=== PATIENT | female | born 1995 | race Caucasian/White ===

== ENCOUNTER 2025-05-29 08:38 | Outpatient (AMB) | payer BC, SELFPAY ==
[2025-05-29 09:03] VITALS: BP 112/78; PULSE 82; RESP 17; TEMP 36.8; O2SAT 98; BMI 31.2
--- NOTE | 2025-05-29 09:03 | OBCLNT_ITS ---
Vital Signs 05/29/25 09:03 Height 1.55 m Height Method Stated Weight 74.956 kg Weight Measurement Method Standing Scale BMI 31.2 BP 112/78 Blood Pressure Source Automatic Cuff Blood Pressure Location Right Upper Arm Position Sitting Respiration 17 Pulse 82 Pulse Source Monitor Temp 98.2 F Temp Source Temporal Artery Scan Pulse Oximetry (%) 98 Oxygen Delivery Method Room Air Allergies/Home Meds Allergies & Medications Allergies No Known Allergies Allergy (Verified 05/29/25 09:04) Medication Reconciliation Unobtainable 05/29/25 [History Confirmed 05/29/25] Intake Visit Data Collection New Patient or Established: New Patient (never been to [facility]) Reason for Visit:: OBI Seen by Clinical Staff ONLY (RN/MA): No Brick Paver Required: No Do You Feel Safe at Home: Yes Authorities Contacted: N/A PCP or OBGYN visit in last 3 months: No Hx Now: Yes Are you currently on any form of Control: No Last menstrual period: 03/28/25 Pain Present Currently: No Pain Scale Used: Morris-Anne/Numerical Pain scale:: 0 Smoking Status Smoking Status: Never smoker Questionnaires Covid-19 Vaccine Questionnaire Has patient been vacinated for Covid-19 Have you been vacinated for Covid-19: No PHQ-9 PHQ-2 Over the last 2 weeks, how often have you been bothered by any of the following problems? 1. Little interest or pleasure in doing things: not at all 2. Feeling down, depressed, or hopeless: not at all Total score: 0 PHQ-9 3. Trouble falling or staying asleep, or sleeping too much: Not at all 4. Feeling tired or having little energy: Not at all 5. Poor appetite or overeating: Not at all 6. Feeling bad about yourself - or that you are a failure or have let yourself or your family down: Not at all 7. Trouble concentrating on things, such as reading the newspaper or watching television: Not at all 8. Moving or speaking so slowly that other people could have noticed? - Or the opposite - being so fidgety or restless that you have been moving around a lot more than usual: not at all 9. Thoughts that you would be better off or of hurting yourself in some way: Not at all Total score: 0 If you checked off any problems, how difficult have these problems made it for you to do your work, take care of things at home, or get along with other people?: not difficult at all Source: Developed by Drs. Travis Almeida, Analy Ingram, Delmar Perez and colleagues, with an educational tiarra from [employer]. Depression screen completed yes Social History Living Situation History Marital Status: Lives With: Family Housing: House Tobacco History Smoking Status: Never smoker Second Hand Smoke Exposure: No Alcohol History Alcohol Intake: Never Domestic Abuse History Do You Feel Safe at Home: Yes History of Present Illness HPI Narrative 30-year-old 3 para 2 for OBI. Patient is happy about the . Her last. Was March 28, 2025. Estimated due date is January 03, 2026. Patient has a history of a previous x 2. She denies any SAB concerns. Denies social habits. Previous section x 2 and she had an appendectomy in 2021. Patient has no existing past medical history. Complains of fatigue but no nausea and vomiting OB Initial Visit OB Flowsheet OB Flowsheet Initial Weight: Not Recorded Date -?-?-?-?-?-?-?-?-?-?-?-?- EGA Weight BP Alb Glu CTX Pres Fundal ht FHR Mov Dilation Station Effacement Hx Notes Visit Note 05/29/25 -?-?-?-?-?-?-?-?-?-?-?-?- 8w 6d 74.956 kg 112/78 absent unknown 9 144 absent 30-year-old 2 para 2 for OBI. Patient has a history of previous C-sections x 2. Her last. March 28, 2025. And this gives EDC 01/01/2026. Her Pap was this year negative. She is taking vitamins. Denies any signs or symptoms of miscarriage OB panel today with hemoglobin A1c, NIPT and carrier screens. Discussed SAB precautions. I scheduled an [facility] for [facility] For dating. And she will return in 4 weeks with OB Menstrual History Menstrual reliability: definite Flow: normal Menstrual regularity: regular Monthly: Yes On control pills at conception: No OB History : 3 Para: 2 # of Living Children: 2 Delivery History 1st : Child's name: CASSY TRIVEDI date: 01/27/14 sex: male Gestational age at delivery (weeks): 39 Delivery type: weight (lbs): 2721.554 g weight (oz): 368.544 g Delivery complications: EMERGENCY CSECTION History of depression before or after : No 2nd : Child's name: SHYAM RIBEIRO date: 03/10/17 sex: female Gestational age at delivery (weeks): 39 Delivery type: weight (lbs): 3175.147 g weight (oz): 56.699 g History of depression before or after : No Infection History & Risk Evaluation History of STDs: none HIV risk evaluation: low risk Hepatitis B risk evaluation: low risk Patient or partner has history of Genital Herpes: No Varicella/chicken pox status: unknown Genetic Screening & History Genetic Screening/Teratology Counseling - Includes patient, baby's father, or anyone in either family with: 1. Patient's age 35 years or older as of estimated date of delivery: No 2. Thalassemia (Sami, Maltese, Mediterranean, or Background); MCV less than 80: No 3. Neural Tube Defect (Meningomyelocele, Spina Bifida, or Anencephaly): No 4. Congenital Heart Defect: No 5. Down Syndrome: No 6. Jose-Sachs (Ashkenazi Quaker, Cajun, Turkish Sao Tomean): No 7. Patel Disease (Ashkenazi Quaker): No 8. Familial Dysautonomia (Ashkenazi Quaker): No 9. Sickle Cell Disease or Trait (): No 10. Hemophilia or other blood disorders: No 11. Muscular Dystrophy: No 12. Cystic Fibrosis: No 13. Harford's Chorea: No 14. Mental Retardation/Autism: No 15. Other inherited genetic or chromosomal disorder: No 16. Maternal Metabolic Disorder (EG,TYPE 1 Diabetes, PKU): No 17. Patient or baby's father had a child with defects not listed above: No 18. Recurrent loss or a stillbirth: No 19. Medications (including supplements, vitamins, herbs or otc drugs)/illicit/recreational drugs/alcohol since last menstrual period: No 20. Any other: No Infection History 1. Live with someone with TB or exposed to TB: No 2. Rash or viral illness since last menstrual period: No 3. Hepatitis B,C: No Other (see comments) Source: [employer] Review of Systems Review of Systems Systems Reviewed: All systems reviewed, normal except as documented Exam General Limitations: no limitations General Appearance: alert, in no apparent distress, comfortable, cooperative, healthy appearing, well developed and well groomed Head Head exam: atraumatic, normocephalic and normal inspection Neck Neck exam: Present normal inspection, full ROM and trachea midline Resp Respiratory exam: Present normal lung sounds bilaterally Card Cardiovascular exam: Present regular rate, normal rhythm and normal heart sounds Abdominal Abdominal exam: Present soft and normal bowel sounds Extremities Extremities exam: Present normal inspection and full ROM Psych Psychiatric exam: Present normal affect and normal mood Office Procedures OB Clinic LOC & Office Proc's Nursing/Assessment Patient Status: Initial/New Patient OB Clinic Nursing Assessment: Medication Reconciliation, Update PMH in EMR and Vital Signs OB Clinic Coordination of Care: Complex Care and Chronic Disease 1-5, Consent,records obtained, informed consent, Education Simp Pt/Fam, Lab and Imaging orders and Staff clarify orders Special Needs: Heart tones New Patient Charge New Patient Point Assignment: [id number] 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 Schedule OB sono here at [facility] for dates. Discussed SAB precautions. Return in 4 weeks for OB check Additional Plan Follow Up: 4 Weeks (obc)
== END 2025-05-29 09:29 | disposition home or self-care (01) ==
LOC: HODSOBC 08:38
PROVIDERS: Supervising Provider Advanced Practice Midwife; Visit Provider Advanced Practice Midwife
DX: O09.291 Supervision of pregnancy with other poor reproductive or obstetric history, first trimester (principal); O34.211 Maternal care for low transverse scar from previous cesarean delivery; Z3A.08 8 weeks gestation of pregnancy
CPT/HCPCS: 99204; G0463

== ENCOUNTER → 2025-06-23 | Outpatient (CLI) | payer BC, SELFPAY ==
--- NOTE | 2025-06-23 15:30 | XR_ITS ---
Examination: Complete OB ultrasound, less than 14 weeks, transabdominal Date and time of exam: June 23, 2025, 1519 hours INDICATIONS: Encounter for maternal care, history , encounter for supervision of high risk Technique: Obstetrical ultrasound images less than 14 weeks performed via transabdominal imaging Findings: A normal shaped single intrauterine gestation is present in the uterus. CRL 6.1 cm corresponds to 12 weeks 4 days gestational age Cardiac motion 160 BPM Ultrasonographic survey of visible and placental structures unremarkable. Amniotic fluid volume appears appropriate for this estimated gestational age. Right ovary 2.8 cm arterial flow Left ovary 1.9 cm arterial flow IMPRESSION: Viable intrauterine gestation 12 weeks 4 days.
== END | disposition home or self-care (01) ==
PROVIDERS: Referring Provider Advanced Practice Midwife; Visit Provider Advanced Practice Midwife
DX: O34.211 Maternal care for low transverse scar from previous cesarean delivery (principal); O09.91 Supervision of high risk pregnancy, unspecified, first trimester; Z3A.12 12 weeks gestation of pregnancy
CPT/HCPCS: 76801

== ENCOUNTER 2025-06-25 13:58 | Outpatient (AMB) | payer BC, SELFPAY ==
--- NOTE | 2025-06-25 14:06 | OBCLNT_ITS ---
Vital Signs 06/25/25 14:09 Height 1.55 m Height Method Stated Weight 74.389 kg Weight Measurement Method Standing Scale BMI 30.9 BP 115/80 Blood Pressure Source Automatic Cuff Blood Pressure Location Left Upper Arm Position Sitting Respiration 20 Pulse 107 H Pulse Source Monitor Temp 97.7 F Temp Source Oral Pulse Oximetry (%) 97 Oxygen Delivery Method Room Air Allergies/Home Meds Allergies & Medications Allergies No Known Allergies Allergy (Verified 06/25/25 14:10) Medication Reconciliation nitrofurantoin monohydrate/macrocrystals 100 mg capsule (Macrobid) 100 mg PO BID 7 days #14 caps 06/25/25 [Rx] Intake Visit Data Collection New Patient or Established: Established Patient (seen at [facility] within 3 years) Reason for Visit:: CARE Seen by Clinical Staff ONLY (RN/MA): No Fur Sorter Required: No Do You Feel Safe at Home: Yes Authorities Contacted: N/A PCP or OBGYN visit in last 3 months: Yes Hx Now: Yes Are you currently on any form of Control: No Pain Present Currently: No Pain Scale Used: Morris-Anne/Numerical Pain scale:: 0 Smoking Status Smoking Status: Never smoker Questionnaires Covid-19 Vaccine Questionnaire Has patient been vacinated for Covid-19 Have you been vacinated for Covid-19: No PHQ-9 PHQ-2 Over the last 2 weeks, how often have you been bothered by any of the following problems? 1. Little interest or pleasure in doing things: not at all 2. Feeling down, depressed, or hopeless: not at all Total score: 0 PHQ-9 3. Trouble falling or staying asleep, or sleeping too much: Not at all 4. Feeling tired or having little energy: Not at all 5. Poor appetite or overeating: Not at all 6. Feeling bad about yourself - or that you are a failure or have let yourself or your family down: Not at all 7. Trouble concentrating on things, such as reading the newspaper or watching television: Not at all 8. Moving or speaking so slowly that other people could have noticed? - Or the opposite - being so fidgety or restless that you have been moving around a lot more than usual: not at all 9. Thoughts that you would be better off or of hurting yourself in some way: Not at all Total score: 0 Source: Developed by Drs. Travis Almeida, Analy Ingram, Delmar Perez and colleagues, with an educational tiarra from [employer]. Depression screen completed yes Social History Living Situation History Lives With: Family Housing: House Tobacco History Smoking Status: Never smoker Second Hand Smoke Exposure: No Alcohol History Alcohol Intake: Never Domestic Abuse History Do You Feel Safe at Home: Yes Care OB Visit Log OB Flowsheet Initial Weight: Not Recorded Date -?-?-?-?-?-?-?-?-?-?-?-?- EGA Weight BP Alb Glu CTX Pres Fundal ht FHR Mov Dilation Station Effacement Hx Notes Visit Note 05/29/25 -?-?-?-?-?-?-?-?-?-?-?-?- 8w 6d 74.956 kg 112/78 absent unknown 9 144 absent 30-year-old 2 para 2 for OBI. Patient has a history of previous C-sections x 2. Her last. March 28, 2025. And this gives EDC 01/01/2026. Her Pap was this year negative. She is taking vitamins. Denies any signs or symptoms of miscarriage OB panel today with hemoglobin A1c, NIPT and carrier screens. Discussed SAB precautions. I scheduled an [facility] for [facility] here [facility]. For dating. And she will return in 4 weeks with OB 06/25/25 -?-?-?-?-?-?-?-?-?-?-?-?- 12w 5d 74.389 kg 115/80 absent unknown 12 144 absent Doing well. Denies cramps, bleeding, leaking. No dysuria. ma yeah so then He called me and said so my plan is to t ry to get thiscrobid 100 bid x 7, fluid, discuss dates. mfm pending. RTC 4 wk AFP. review sab precauton MYNOR Calculator Estimated Delivery Date Method Current WG Current Estimate 01/02/26 LMP (Certain) 12w 5d Other Estimates 01/01/26 Ultrasound #1 12w 6d Notes Visit Date: 06/25/25 Last Updated by: Maggy Ferguson CNM 06/13: A+,abs-. RPR::NR, rub IMM, hbsag-,hiv-,GC/CT-, UA:+ ecoli, /266, A!; 4.8 Visit Date: 05/29/25 Last Updated by: Maggy Ferguson CNM 30 yo . prev C/S x2. LMP 03/28/25. EDC: 01/01/26 Office Procedures OBC Clinic LOC & Office Proc's Nursing/Assessment Patient Status: Established Patient OB Clinic Nursing Assessment: Medication Reconciliation, Update PMH in EMR and Vital Signs OB Clinic Coordination of Care: Complex Care and Chronic Disease 1-5, Consent,records obtained, informed consent, Education Simp Pt/Fam, Lab and Imaging orders, Results/Orders obtained and Staff clarify orders Special Needs: Heart tones Established Patient Charge Established Patient Point Assignment: 135 Established Patient Point Charge: EP Level 4 (120-155) Assessment & Plan Diagnosis / Problem List (1) Encounter for supervision of high risk in first trimester, antepartum: Status: Acute (2) UTI (urinary tract infection): Status: Acute Plan Discussed lab results. Macrobid 100 twice daily x 7. Increase fluids. Discussed SAB precautions. Maternal- medicine sono is pending. Return in 4 weeks OB check and AFP Additional Plan Follow Up: 4 Weeks (obc/AFP)
[2025-06-25 14:09] VITALS: BP 115/80; PULSE 107; RESP 20; TEMP 36.5; O2SAT 97; BMI 30.9
== END 2025-06-25 14:27 | disposition home or self-care (01) ==
LOC: HODSOBC 13:58
PROVIDERS: Supervising Provider Advanced Practice Midwife; Visit Provider Advanced Practice Midwife
DX: O09.891 Supervision of other high risk pregnancies, first trimester (principal); O23.41 Unspecified infection of urinary tract in pregnancy, first trimester; N39.0 Urinary tract infection, site not specified; Z3A.12 12 weeks gestation of pregnancy
CPT/HCPCS: 99214; G0463

== ENCOUNTER 2025-07-23 14:21 | Outpatient (AMB) | payer BC, SELFPAY ==
[2025-07-23 14:31] VITALS: BP 106/72; PULSE 89; RESP 16; TEMP 36.6; O2SAT 99; BMI 31.6
--- NOTE | 2025-07-23 14:31 | AMB.OBVISIT ---
Vital Signs 07/23/25 14:31 Height 1.55 m Height Method Stated Weight 75.977 kg Weight Measurement Method Standing Scale BMI 31.6 BP 106/72 Blood Pressure Source Automatic Cuff Blood Pressure Location Left Upper Arm Position Sitting Respiration 16 Pulse 89 Pulse Source Monitor Temp 97.8 F Temp Source Oral Pulse Oximetry (%) 99 Oxygen Delivery Method Room Air Allergies/Home Meds Allergies & Medications Allergies No Known Allergies Allergy (Verified 07/23/25 14:32) Medication Reconciliation No Known Home Medications 07/23/25 [History Confirmed 07/23/25] Intake Visit Data Collection New Patient or Established: Established Patient (seen at [facility] within 3 years) Reason for Visit:: CARE Seen by Clinical Staff ONLY (RN/MA): No Orange Picker Machine Operator Required: No Do You Feel Safe at Home: Yes Authorities Contacted: N/A PCP or OBGYN visit in last 3 months: Yes Hx Now: Yes Are you currently on any form of Control: No Pain Present Currently: No Pain Scale Used: Morris-Anne/Numerical Pain scale:: 0 Smoking Status Smoking Status: Never smoker Immunizations Flu Vaccine in the Last 12 Months: No Flu Vaccine Exclusion Criteria: Refused by Patient Questionnaires Covid-19 Vaccine Questionnaire Has patient been vacinated for Covid-19 Have you been vacinated for Covid-19: No PHQ-9 PHQ-2 Over the last 2 weeks, how often have you been bothered by any of the following problems? 1. Little interest or pleasure in doing things: not at all 2. Feeling down, depressed, or hopeless: not at all Total score: 0 PHQ-9 3. Trouble falling or staying asleep, or sleeping too much: Not at all 4. Feeling tired or having little energy: Not at all 5. Poor appetite or overeating: Not at all 6. Feeling bad about yourself - or that you are a failure or have let yourself or your family down: Not at all 7. Trouble concentrating on things, such as reading the newspaper or watching television: Not at all 8. Moving or speaking so slowly that other people could have noticed? - Or the opposite - being so fidgety or restless that you have been moving around a lot more than usual: not at all 9. Thoughts that you would be better off or of hurting yourself in some way: Not at all Total score: 0 Source: Developed by Drs. Travis Almeida, Analy Ingram, Delmar Perez and colleagues, with an educational tiarra from [employer]. Depression screen completed yes Social History Living Situation History Lives With: Family Housing: House Tobacco History Smoking Status: Never smoker Second Hand Smoke Exposure: No Alcohol History Alcohol Intake: Never Domestic Abuse History Do You Feel Safe at Home: Yes Care OB Visit Log OB Flowsheet Initial Weight: Not Recorded Date <del>?</del> EGA Weight BP Alb Glu CTX Pres Fundal ht FHR Mov Dilation Station Effacement Hx Notes Visit Note 05/29/25 <del>?</del> 8w 6d 74.956 kg 112/78 absent unknown 9 144 absent 30-year-old 2 para 2 for OBI. Patient has a history of previous C-sections x 2. Her last. March 28, 2025. And this gives EDC 01/01/2026. Her Pap was this year negative. She is taking vitamins. Denies any signs or symptoms of miscarriage OB panel today with hemoglobin A1c, NIPT and carrier screens. Discussed SAB precautions. I scheduled an [facility] for [facility] For dating. And she will return in 4 weeks with OB 06/25/25 <del>?</del> 12w 5d 74.389 kg 115/80 absent unknown 12 144 absent Doing well. Denies cramps, bleeding, leaking. No dysuria. ma yeah so then He called me and said so my plan is to try to get thiscrobid 100 bid x 7, fluid, discuss dates. mfm pending. RTC 4 wk AFP. review sab precauton 07/23/25 <del>?</del> 16w 5d 75.977 kg 106/72 absent unknown 16 135 active Doing well. No bleeding, no leaking, no contractions. Light movement.. aFP today. Patient has anatomy scan scheduled with MFM. Discussed SAB precautions. Return in 4 weeks with OB PE MYNOR Calculator Estimated Delivery Date Method Current WG Current Estimate 01/02/26 LMP (Certain) 16w 5d Other Estimates 01/01/26 Ultrasound #1 16w 6d Notes Visit Date: 06/25/25 Last Updated by: Maggy Ferguson CNM 06/13: A+,abs-. RPR::NR, rub IMM, hbsag-,hiv-,GC/CT-, UA:+ ecoli, /266, A!; 4.8 Visit Date: 05/29/25 Last Updated by: Maggy Ferguson CNM 30 yo . prev C/S x2. LMP 03/28/25. EDC: 01/01/26 Office Procedures OBC Clinic LOC & Office Proc's Nursing/Assessment Patient Status: Established Patient OB Clinic Nursing Assessment: Medication Reconciliation, Update PMH in EMR and Vital Signs OB Clinic Coordination of Care: Complex Care and Chronic Disease 1-5, Consent,records obtained, informed consent, Education Simp Pt/Fam, Lab and Imaging orders, Results/Orders obtained and Staff clarify orders Special Needs: Heart tones Established Patient Charge Established Patient Point Assignment: 135 Established Patient Point Charge: EP Level 4 (120-155) Assessment & Plan Diagnosis / Problem List (1) Encounter for supervision of high risk in second trimester, antepartum: Status: Acute (2) Encounter for maternal care for low transverse scar from previous delivery: Status: Acute Plan aFP today. Schedule with OB next visit. Discussed SAB precautions. Continue prenatals. Return 4 weeks OB check Additional Plan Follow Up: 4 Weeks (obc)
== END 2025-07-23 15:11 | disposition home or self-care (01) ==
LOC: HODSOBC 14:21
PROVIDERS: Supervising Provider Advanced Practice Midwife; Visit Provider Advanced Practice Midwife
DX: O09.292 Supervision of pregnancy with other poor reproductive or obstetric history, second trimester (principal); O34.211 Maternal care for low transverse scar from previous cesarean delivery; Z3A.16 16 weeks gestation of pregnancy
CPT/HCPCS: 99214; G0463

== ENCOUNTER 2025-08-26 14:08 | Outpatient (AMB) | payer BC, SELFPAY ==
[2025-08-26 14:44] VITALS: BP 108/70; PULSE 68; RESP 14; TEMP 36.5; O2SAT 98; BMI 31.9
--- NOTE | 2025-08-26 14:44 | OBCLNT_ITS ---
Vital Signs 08/26/25 14:44 Height 1.55 m Height Method Stated Weight 76.827 kg Weight Measurement Method Standing Scale BMI 31.9 BP 108/70 Blood Pressure Source Automatic Cuff Blood Pressure Location Left Upper Arm Position Sitting Respiration 14 Pulse 68 Pulse Source Monitor Temp 97.7 F Temp Source Oral Pulse Oximetry (%) 98 Oxygen Delivery Method Room Air Allergies/Home Meds Allergies & Medications Allergies No Known Allergies Allergy (Verified 08/26/25 14:45) Medication Reconciliation No Known Home Medications 07/23/25 [History Confirmed 08/26/25] Immunizations Immunizations Flu Vaccine in the Last 12 Months: No Flu Vaccine Exclusion Criteria: Refused by Patient Care OB Visit Log OB Flowsheet Initial Weight: Not Recorded Date -?-?-?-?-?-?-?-?-?-?-?-?- EGA Weight BP Alb Glu CTX Pres Fundal ht FHR Mov Dilation Station Effacement Hx Notes Visit Note 05/29/25 -?-?-?-?-?-?-?-?-?-?-?-?- 8w 6d 74.956 kg 112/78 absent unknown 9 144 absent 30-year-old 2 para 2 for OBI. Patient has a history of previous C-sections x 2. Her last. March 28, 2025. And this gives EDC 01/01/2026. Her Pap was this year negative. She is taking vitamins. Denies any signs or symptoms of miscarriage OB panel today with hemoglobin A1c, NIPT and carrier screens. Discussed SAB precautions. I scheduled an [facility] for [facility]. For dating. And she will return in 4 weeks with OB 06/25/25 -?-?-?-?-?-?-?-?-?-?-?-?- 12w 5d 74.389 kg 115/80 absent unknown 12 144 absent Doing well. Denies cramps, bleeding, leaking. No dysuria. miladys yeah so then He called me and said so my plan is to t ry to get thiscrobid 100 bid x 7, fluid, discuss dates. mfm pending. RTC 4 wk AFP. review sab precauton 07/23/25 -?-?-?-?-?-?-?-?-?-?-?-?- 16w 5d 75.977 kg 106/72 absent unknown 16 135 active Doing well. No bleeding, no leaking, no contractions. Light movement.. aFP today. Patient has anatomy scan scheduled with MFM. Discussed SAB precautions. Return in 4 weeks with OB PE 08/26/25 -?-?-?-?-?-?-?-?-?-?-?-?- 21w 4d 76.827 kg 108/70 absent unknown 21 150 active MNYOR Calculator Estimated Delivery Date Method Current WG Current Estimate 01/02/26 LMP (Certain) 21w 4d Other Estimates 01/01/26 Ultrasound #1 21w 5d Notes Visit Date: 08/26/25 Last Updated by: Halley Huang MD / previous c section at 21.4 weeks / Has an anatomy scan scheduled for 09/05/2025 appropriate growth / follow up in 4 weeks Visit Date: 06/25/25 Last Updated by: Maggy Ferguson CNM 06/13: A+,abs-. RPR::NR, rub IMM, hbsag-,hiv-,GC/CT-, UA:+ ecoli, /266, A!; 4.8 Visit Date: 05/29/25 Last Updated by: Maggy Ferguson CNM 30 yo . prev C/S x2. LMP 03/28/25. EDC: 01/01/26 Office Procedures OBC Clinic LOC & Office Proc's Nursing/Assessment Patient Status: Established Patient OB Clinic Nursing Assessment: Medication Reconciliation, Update PMH in EMR and Vital Signs OB Clinic Coordination of Care: Complex Care and Chronic Disease 1-5, Consent,records obtained, informed consent, Education Simp Pt/Fam, 1 Ins Authorization, Lab and Imaging orders, Results/Orders obtained and Staff clarify orders Special Needs: Heart tones Established Patient Charge Established Patient Point Assignment: 150 Established Patient Point Charge: EP Level 4 (120-155) Assessment & Plan Diagnosis / Problem List (1) Encounter for supervision of high risk in second trimester, antepartum: Status: Acute (2) Encounter for maternal care for low transverse scar from previous delivery: Status: Acute Additional Plan carrier screening is negative / at 21.4 weeks / previous LTCS/ anatomy scan scheduled for 09/05/2025 follow up in 4 weeks / refused all vaccines / taking pills
== END 2025-08-26 15:12 | disposition home or self-care (01) ==
PROVIDERS: Supervising Provider Obstetrics & Gynecology; Visit Provider Obstetrics & Gynecology
DX: O09.292 Supervision of pregnancy with other poor reproductive or obstetric history, second trimester (principal); O34.211 Maternal care for low transverse scar from previous cesarean delivery; Z3A.21 21 weeks gestation of pregnancy; Z28.21 Immunization not carried out because of patient refusal
CPT/HCPCS: 99214; G0463

== ENCOUNTER 2025-09-23 13:08 | Outpatient (AMB) | payer BC, SELFPAY ==
[2025-09-23 13:16] VITALS: BP 109/73; PULSE 74; RESP 18; TEMP 36.2; O2SAT 98; BMI 32.6
--- NOTE | 2025-09-23 13:16 | OBCLNT_ITS ---
Vital Signs 09/23/25 13:16 Height 1.55 m Height Method Stated Weight 78.471 kg Weight Measurement Method Standing Scale BMI 32.6 BP 109/73 Blood Pressure Source Automatic Cuff Blood Pressure Location Left Upper Arm Position Sitting Respiration 18 Pulse 74 Pulse Source Monitor Temp 97.2 F Temp Source Oral Pulse Oximetry (%) 98 Oxygen Delivery Method Room Air Allergies/Home Meds Allergies & Medications Allergies No Known Allergies Allergy (Verified 09/23/25 13:17) Medication Reconciliation No Known Home Medications 07/23/25 [History Confirmed 09/23/25] Immunizations Immunizations Flu Vaccine in the Last 12 Months: No Flu Vaccine Exclusion Criteria: No Exclusion Criteria Care OB Visit Log OB Flowsheet Initial Weight: Not Recorded Date -?-?-?-?-?-?-?-?-?-?-?-?- EGA Weight BP Alb Glu CTX Pres Fundal ht FHR Mov Dilation Station Effacement Hx Notes Visit Note 05/29/25 -?-?-?-?-?-?-?-?-?-?-?-?- 8w 6d 74.956 kg 112/78 absent unknown 9 144 absent 30-year-old 2 para 2 for OBI. Patient has a history of previous C-sections x 2. Her last. March 28, 2025. And this gives EDC 01/01/2026. Her Pap was this year negative. She is taking vitamins. Denies any signs or symptoms of miscarriage OB panel today with hemoglobin A1c, NIPT and carrier screens. Discussed SAB precautions. I scheduled an ultrasound for her here at [facility]. For dating. And she will return in 4 weeks with OB 06/25/25 -?-?-?-?-?-?-?-?-?-?-?-?- 12w 5d 74.389 kg 115/80 absent unknown 12 144 absent Doing well. Denies cramps, bleeding, leaking. No dysuria. miladys yeah so then He called me and said so my plan is to t ry to get thiscrobid 100 bid x 7, fluid, discuss dates. mfm pending. RTC 4 wk AFP. review sab precauton 07/23/25 -?-?-?-?-?-?-?-?-?-?-?-?- 16w 5d 75.977 kg 106/72 absent unknown 16 135 active Doing well. No bleeding, no leaking, no contractions. Light movement.. aFP today. Patient has anatomy scan scheduled with [facility]. Discussed SAB precautions. Return in 4 weeks with OB PE 08/26/25 -?-?-?-?-?-?-?-?-?-?-?-?- 21w 4d 76.827 kg 108/70 absent unknown 21 150 active 09/23/25 -?-?-?-?-?-?-?-?-?-?-?-?- 25w 4d 78.471 kg 109/73 Visit Date: 06/25/25 Last Updated by: Maggy Ferguson CNM 06/13: A+,abs-. RPR::NR, rub IMM, hbsag-, hiv-,GC/CT-, UA:+ ecoli, , A!; 4.8 Visit Date: 05/29/25 Last Updated by: Maggy Ferguson CNM 30 yo . prev C/S x2. LMP 03/28/25. EDC: 01/01/26 MYNOR Calculator Estimated Delivery Date Method Current WG Current Estimate 01/02/26 LMP (Certain) 25w 4d Other Estimates 01/01/26 Ultrasound #1 25w 5d Notes Visit Date: 09/23/25 Last Updated by: Halley Huang MD [facility] Us and scan appropriate growth / best EDC by LMP / 01/02/2026/ Plan repeat LTCS at 39 weeks / follow up in 3 weeks Visit Date: 08/26/25 Last Updated by: Halley Huang MD / previous c section at 21.4 weeks / Has an anatomy scan scheduled for 09/05/2025 appropriate growth / follow up in 4 weeks Visit Date: 06/25/25 Last Updated by: Maggy Ferguson CNM 06/13: A+,abs-. RPR::NR, rub IMM, hbsag-,hiv-,GC/CT-, UA:+ ecoli, , A!; 4.8 Visit Date: 05/29/25 Last Updated by: Maggy Ferguson CNM 30 yo . prev C/S x2. LMP 03/28/25. EDC: 01/01/26 Office Procedures [facility] LOC & Office Proc's Nursing/Assessment Patient Status: Established Patient OB Clinic Nursing Assessment: Medication Reconciliation, Update PMH in EMR and Vital Signs OB Clinic Coordination of Care: Complex Care and Chronic Disease 1-5, Consent,records obtained, informed consent, Education Simp Pt/Fam, Lab and Imaging orders, Results/Orders obtained and Staff clarify orders Special Needs: Heart tones Established Patient Charge Established Patient Point Assignment: 135 Established Patient Point Charge: EP Level 4 (120-155) Assessment & Plan Diagnosis / Problem List (1) Encounter for supervision of high risk in second trimester, antepartum: Status: Acute (2) Encounter for maternal care for low transverse scar from previous delivery: Status: Acute Additional Assessment appropriate growth / one hour GTT / CBC and RPR ordered and follow up in 3 weeks
== END 2025-09-23 13:44 | disposition home or self-care (01) ==
LOC: HODSOBC 13:08
PROVIDERS: Supervising Provider Obstetrics & Gynecology; Visit Provider Obstetrics & Gynecology
DX: O09.292 Supervision of pregnancy with other poor reproductive or obstetric history, second trimester (principal); O34.211 Maternal care for low transverse scar from previous cesarean delivery; Z3A.25 25 weeks gestation of pregnancy
CPT/HCPCS: 99214; G0463